=== PATIENT | male | born 1990 | race Caucasian/White ===

== ENCOUNTER 2018-08-08 04:19 | Inpatient (IN) | payer BC ==
[~2018-08-08] VITALS: Ht 180.3 cm; Wt 89.8 kg
[2018-08-08] VITALS (7 sets, daily range): BP systolic 107–130; BP diastolic 58–80
[2018-08-08 05:09] LABS: microscopic required? NO
[2018-08-08 05:21] LABS: UA SPECIFIC GRAVITY >=1.030 (1.005-1.035); urine erythrocyte NEGATIVE (NEGATIVE)
[2018-08-08 05:24] LABS: BASOPHIL % 0.2 % (0-2); PLATELET COUNT 147 x10^3mcL (130-400); RED CELL DISTRIBUTION WIDTH 13.2 % (11.5-14.5)
[2018-08-08 05:25] LABS: CALCIUM 9.4 mg/dL (8.5-10.1); CARBON DIOXIDE 27.3 mmol/L (21-32); CHLORIDE SERUM 103 mmol/L (98-107); CREATININE SERUM 0.9 mg/dL (0.7-1.3); GFR1 > 60 mL/min; GLUCOSE SERUM 110 mg/dL (74-106); POTASSIUM SERUM 3.6 mmol/L (3.5-5.1); SODIUM SERUM 139 mmol/L (136-145)
[2018-08-08 05:29] LABS: ALBUMIN 4.1 g/dL (3.4-5.0); ALKALINE PHOSPHATASE 67 U/L (46-116); ALT/SGPT 30 U/L (16-63); AST/SGOT 16 U/L (15-37); BILIRUBIN TOTAL 0.5 mg/dL (0.20-1.00); CHOLESTEROL 162 mg/dL (<200); CHOLESTEROL/HDL RATIO 3.4; HDL CHOLESTEROL 47 mg/dL (40-60); LIPASE 165 IU/L (73-393); TOTAL PROTEIN, SERUM 8.2 g/dL (6.4-8.2); TRIGLYCERIDES 32 mg/dL (<150)
[2018-08-08 05:39] LABS: T3 TOTAL 1.15 ng/mL
[2018-08-08 05:40] LABS: FREE T4 1.34 ng/dL (0.76-1.46); FREE THYROXINE INDEX 3.8 ug/dL (1.4-4.5); T4(THYROXINE) 11.1 ug/dL (4.7-13.3)
[2018-08-08 05:45] LABS: AMPHETAMINE QUAL UR NONE DETECTED (See below)
[2018-08-09 00:05] VITALS: BP 104/60
[2018-08-09 02:52] VITALS: BP 98/58
[2018-08-09 03:48] VITALS: BP 108/64
[2018-08-09 05:28] VITALS: BP 126/78
[2018-08-09 05:59] LABS: BASOPHIL % 0.1 % (0-2); RED CELL DISTRIBUTION WIDTH 13.3 % (11.5-14.5)
[2018-08-09 06:29] LABS: ALKALINE PHOSPHATASE 53 U/L (46-116); ALT/SGPT 41 U/L (16-63); AST/SGOT 33 U/L (15-37); BILIRUBIN TOTAL 0.69 mg/dL (0.20-1.00); CALCIUM 8.5 mg/dL (8.5-10.1); CARBON DIOXIDE 26.8 mmol/L (21-32); CHLORIDE SERUM 106 mmol/L (98-107); CREATININE SERUM 0.8 mg/dL (0.7-1.3); GFR1 > 60 mL/min; GLUCOSE SERUM 133 mg/dL (74-106); POTASSIUM SERUM 5.1 mmol/L (3.5-5.1); SODIUM SERUM 140 mmol/L (136-145); TOTAL PROTEIN, SERUM 6.8 g/dL (6.4-8.2)
[2018-08-09 06:32] LABS: PLATELET COUNT 114 x10^3mcL (130-400)
[2018-08-09 09:15] VITALS: BP 120/79
[2018-08-09 12:58] VITALS: BP 120/79
== END 2018-08-09 15:15 | disposition home or self-care (01) | DRG 419 ==
LOC: ED 04:19 → MU 07:34
PROVIDERS: Specialist; Surgery; ADMIT Internal Medicine
PROC: 0FT44ZZ Resection of Gallbladder, Percutaneous Endoscopic Approach (ICD-10-PCS; principal; 2018-08-08 18:45)
DX: K80.00 Calculus of gallbladder with acute cholecystitis without obstruction (principal); K82.8 Other specified diseases of gallbladder; K66.0 Peritoneal adhesions (postprocedural) (postinfection)
CPT/HCPCS: 83880; 84439; G0480; J0330; J0696; J1170; J1885; J1956; J2405; J2704; J2710; J3010; J3490; J7030; J7042; J7120; Q0092

== ENCOUNTER 2020-06-30 14:30 | Emergency (ER) | payer MEDICAID ==
[~2020-06-30] VITALS: Ht 180.3 cm; Wt 99.8 kg
[2020-06-30 14:31] VITALS: BP 104/77; Ht 180.3 cm; Wt 99.8 kg
== END 2020-06-30 17:16 | disposition home or self-care (01) ==
LOC: ED 14:30
DX: U07.1 COVID-19 (principal); J45.909 Unspecified asthma, uncomplicated